=== PATIENT | female | born 1980 | race Two or more races ===

== ENCOUNTER 2020-01-11 11:55 | Emergency (ER) | payer OTHER ==
[~2020-01-11] VITALS: Ht 160 cm; Wt 61.2 kg
[2020-01-11] MEDS ORDERED: KETO10TA2 PO (15:22)
[2020-01-11] MEDS ORDERED: NORFLEX100MG PO (15:22)
[2020-01-11] MEDS ORDERED: ZITHROMAX500 MG PO (16:05)
== END 2020-01-11 16:31 | disposition home or self-care (01) ==
LOC: ER 11:55
DX: M54.2 Cervicalgia (principal); M54.5 Low back pain; R53.81 Other malaise; B96.0 Mycoplasma pneumoniae [M. pneumoniae] as the cause of diseases classified elsewhere; Z03.818 Encounter for observation for suspected exposure to other biological agents ruled out